=== PATIENT | female | born 1970 | race Caucasian/White ===

== ENCOUNTER 2024-03-18 23:13 | Emergency (ER) | payer BC, MEDICARE ==
[~2024-03-18] VITALS: Ht 152.4 cm; Wt 68.2 kg
[2024-03-18 23:35] VITALS: TEMP 98
[2024-03-19] MEDS: ceFAZolin 1gm IM kit IM ONE (01:15)
[2024-03-19] MEDS: LIDOcaine 1% 30ml preserv. free vial IJ ONE (02:07)
[2024-03-19] MEDS ORDERED: SULF1TAB49 PO (02:30)
[2024-03-19] MEDS ORDERED: HYDR-3965 PO (02:30)
[2024-03-19] MEDS ORDERED: ONDA8TAB13 PO (02:30)
[2024-03-19] MEDS ORDERED: TRAM50TA2 PO (02:58)
[2024-03-19 03:15] VITALS: BP 104/69; PULSE 72; RESP 17; O2SAT 96
[2024-03-19] MEDS: bacitracin 15gm ointment TP ONE (03:22)
[2024-03-19] MEDS: TETanus/Pertussis (Acell)/Diphther VAC/PF (Tdap-Adult) 0.5ml syringe IMVAC ONE (03:22)
== END 2024-03-19 04:04 | disposition home or self-care (01) ==
LOC: ER 23:14
DX: S62.632B Displaced fracture of distal phalanx of right middle finger, initial encounter for open fracture (principal); X58.XXXA Exposure to other specified factors, initial encounter; Y93.89 Activity, other specified; Y92.89 Other specified places as the place of occurrence of the external cause; Y99.8 Other external cause status
CPT/HCPCS: 12001; 73140; 90715; 96372; 99285; A4565; A6222; G0008; J0690; Z7610; 90471